=== PATIENT | female | born 1975 ===

== ENCOUNTER 2017-06-16 14:35 | Outpatient (CLI) | payer OTHER | END 2017-06-16 14:36 | disposition home or self-care (01) | LOC: LABHHL 14:35 | PROVIDERS: ATTEND Surgery | DX: N60.02 Solitary cyst of left breast (principal) | CPT/HCPCS: 88112 ==

== ENCOUNTER 2018-06-22 09:08 | Outpatient (CLI) | payer OTHER ==
--- NOTE | 2018-06-22 10:35 | Ultrasound Report ---
TARGETED RIGHT BREAST ULTRASOUND: 06/22/18 09:08:00 CLINICAL: Evaluate a complex cyst at 7 o'clock centimeters from the nipple. COMPARISON: 06/17/18 screening mammogram FINDINGS: Ultrasoundof the right breast demonstrated a benign cyst at 7 o'clock 5 cm from the nipple measuring 3.2 x 2.6 x 1.3 cm. It has a slightly irregular contour. An adjacent anechoic cyst with an irregular shape is identified at 7 o'clock 4 cm from nipple. It measures 1.3 x 0.9 x 0.7 cm. No complex cysts identified. No solid mass or shadowing. IMPRESSION: Benign cysts BI-RADS 2 - - Benign RECOMMENDATION: Routine mammographic screening.
== END 2018-06-22 09:09 | disposition home or self-care (01) ==
LOC: SPVWC 09:08
PROVIDERS: ATTEND Surgery
DX: N60.01 Solitary cyst of right breast (principal)

== ENCOUNTER 2020-06-26 14:39 | Outpatient (CLI) | payer OTHER ==
--- NOTE | 2020-06-26 16:59 | Ultrasound Report ---
BILATERAL DIGITAL DIAGNOSTIC MAMMOGRAM WITH CAD 06/26/2020 BILATERAL COMPLETE BREAST ULTRASOUND INDICATION: SOLITARY CYST OF RIGHT BREAST TECHNIQUE: Digital bilateral mammographic imaging was performed. Complete ultrasound of all four (4) quadrants was performed. This examination was interpreted with the benefit of Computer-Aided Detecti on (CAD) analysis. COMPARISON: 05/21/2017 through 06/23/2019. FINDINGS: Breast Density: The breasts are extremely dense, which lowers the sensitivity of mammography. MAMMOGRAPHIC FINDINGS: There is no evidence of dominant mass, suspicious calcifications or architectu ral distortion in either breast. There is a new biopsy clip in the right lateral breast posteriorly. ULTRASOUND FINDINGS: Complete sonographic evaluation of all 4 quadrants and retroareolar region was p erformed. RIGHT: There is dense breast tissue. There are multiple simple and mildly complicated cysts scattered throughout the right breast. The largest cystic lesion measures approximately 1.7 cm at the 1:00 pos ition near the nipple. No suspicious abnormality is identified. LEFT: There is dense breast tissue. There are multiple simple and mildly complicated cysts scattered throughout the left breast. The largest lesion measures approximately 2.5 cm at the 1:00 position 4 c m from the nipple. No suspicious abnormality is identified. IMPRESSION: No mammographic or sonographic evidence of malignancy. Follow up recommendation: Routine yearly BI-RADS Category 2: Benign. A "normal" or negative report should not discourage follow up or biopsy of a clinically significant f inding. A written summary of these findings will be mailed to the patient. The patient will be entered into a mammography reporting system which will generate a reminder letter for the patient's next appointmen t at the appropriate interval. According to the [employer], yearly mammograms are recommended starting at age 40 and continuing as long as a woman is in good health. Breast MRI is recommended for women with an keron roximately 20-25% or greater lifetime risk of breast cancer, including women with a strong family his tory of breast or ovarian cancer and women who have been treated for Hodgkin's disease. Signer Name: Gera Maravilla MD Signed: 06/26/2020 4:54 PM Workstation Name: [id number]
== END 2020-06-26 14:40 | disposition home or self-care (01) ==
LOC: SPVWC 14:39
PROVIDERS: ATTEND Surgery
DX: Z12.31 Encounter for screening mammogram for malignant neoplasm of breast (principal); N60.01 Solitary cyst of right breast; N60.02 Solitary cyst of left breast
CPT/HCPCS: 77067

== ENCOUNTER 2020-12-04 10:38 | Outpatient (CLI) | payer OTHER ==
--- NOTE | 2020-12-04 15:25 | Magnetic Resonance Report ---
Bilateral breast MR without and with contrast. History: Slight left nipple retraction, history of diffuse breast cysts bilaterally. Comparison: 06/26/2020. Technique: Multiplanar multisequence MR images of the breast were obtained before and after the intra venous administration of contrast agent. Post processing analysis and review was performed on a [employer] computer workstation. Findings: Breast composition is extremely dense. There is marked background parenchymal enhancement bilaterally . Both of these findings decreases the sensitivity of this exam and limits evaluation for detection o f malignancy. LEFT BREAST: Located within the left far posterior breast at the 1:00 position is a 13 x 7 x 8 mm lob ulated enhancing lesion. This is best seen on image 371 of [id number]. This is located just superior to a la rge cyst in this region which may be beneficial to use as a landmark. Multiple additional benign-appe aring cysts are present throughout the left breast. No correlate to explain reported left nipple retr action. There is slight asymmetric enhancement of the left nipple which can be a normal finding. RIGHT BREAST: Located in the right posterior breast at the 7:00 position is a 5 x 6 x 5 mm oval, poss ibly reniform shaped, lesion. This is best seen on image [id number] of 636. Multiple benign-appearing cysts are also present throughout the the right breast. No abnormal axillary or internal mammary lymph nodes. Impression: Left 1:00 far posterior oval solid lesion measuring 13 mm is noted. This demonstrates slightly T2 hyp erintense signal and may represent a fibroadenoma. A targeted ultrasound is recommended (focused at t he 1:00 position, 6 cm from the nipple) with possible ultrasound guided biopsy if a correlate is iden tified. If no sonographic correlate is identified, a six-month follow-up ultrasound would be recommen ded. This is likely too far posterior to be amenable to MRI guided biopsy. Right 7:00 posterior breast 6 mm oval, possibly reniform shaped, lesion for which a targeted ultrasou nd (focused at the 7:00 position, 4 cm from the nipple) with possible subsequent ultrasound-guided bi opsy if a correlate is identified. If no sonographic correlate is identified, a six-month follow-up M RI would be recommended as this demonstrates features suggesting this may represent an intramammary l ymph node. Multiple benign-appearing cysts are present throughout both breasts. No correlate to explain reported left nipple retraction. There is slight asymmetric enhancement of th e left nipple. This is a nonspecific finding, but can be seen as a normal variant. Recommend clinical correlation with assessment for any inflammation or redness in this region. BIRADS 0: Incomplete--Needs Additional Imaging Evaluation. A normal MRI does not exclude the presence of some forms of breast malignancy as literature reports s uggest that some forms of ductal carcinoma in situ or lobular carcinoma, particularly, may not be det ected on MRI. The sensitivity and specificity of MRI for cancers under 5 mm may be reduced. MRI does not replace the recommendation for annual conventional mammographic evaluation and should be used as an adjunct to mammography and physical examination as necessary. Signer Name: Neal Ariza MD Signed: 12/04/2020 3:21 PM Workstation Name: [id number]
== END 2020-12-04 10:39 | disposition home or self-care (01) ==
LOC: SPVIMAG 10:38
PROVIDERS: ATTEND Surgery
DX: N60.01 Solitary cyst of right breast (principal); N60.02 Solitary cyst of left breast; N64.4 Mastodynia; N64.89 Other specified disorders of breast
CPT/HCPCS: A9575; C8908; 77049

== ENCOUNTER 2020-12-12 11:17 | Outpatient (CLI) | payer OTHER ==
--- NOTE | 2020-12-12 16:15 | Ultrasound Report ---
ULTRASOUND BREAST BILATERAL LIMITED, 12/12/2020 CLINICAL INFORMATION / INDICATION: Abnormal MRI bilaterally. TECHNIQUE: Targeted ultrasound evaluation was performed of the area of interest. COMPARISON: Recent bilateral breast MRI 12/04/2020 and bilateral breast ultrasound 06/26/2020 FINDINGS: Right breast: In the 7:00 position of the right breast, 5 cm from nipple, there is a hypoechoic oval mass measuring 11 x 6 mm. I suspect this is a complicated cyst or focal fibrocystic tissue. I do not see a mammographic correlate for the 6 mm reniform mass identified in the 7:00 position on recent MRI . There are a few additional small cysts in the lower outer quadrant of the right breast. Left breast: There is a large simple cyst measuring 12 mm in the 1:00 position of the left breast pos terior depth. Scattered fibrocystic changes are noted throughout the breast. There is a solid oval ma ss in the 12:00 position, 6 cm from nipple, measuring 11 x 4 mm. This may correlate with MRI finding. Overall appearance would suggest a benign etiology such as fibroadenoma. IMPRESSION: 1. 11 mm oval smoothly marginated solid mass left breast 12:00. This may correlate with recent MRI fi nding. Overall appearance is that of a fibroadenoma. 2. No definite sonographic correlate for small reniform mass in the right breast at 7:00. 3. Due to overall abnormalities having features more suggestive of benign processes, a six-month foll ow-up bilateral MRI is recommended. Follow up recommendation: 6 month follow-up bilateral breast MRI BI-RADS Category 3: Probably Benign. Followup in 6 months. A normal or "negative" report should not preclude biopsy or follow-up of a clinically suspicious find ing. Signer Name: Mary Silva MD Signed: 12/12/2020 4:11 PM Workstation Name: [id number]
== END 2020-12-12 11:18 | disposition home or self-care (01) ==
LOC: SPVWC 11:17
PROVIDERS: ATTEND Surgery
DX: N60.02 Solitary cyst of left breast (principal); N63.13 Unspecified lump in the right breast, lower outer quadrant; N63.21 Unspecified lump in the left breast, upper outer quadrant